=== PATIENT | male | born 1975 | race Caucasian/White ===

== ENCOUNTER 2019-05-02 00:21 | Emergency (ER) | payer MEDICAID ==
[~2019-05-02] VITALS: Ht 175.3 cm; Wt 81.0 kg
--- NOTE | 2019-05-02 00:45 | NUR ---
nil [id number]
--- NOTE | 2019-05-02 01:36 | NUR ---
NO CHANGE IN PT STATUS; AWAIT ED ROOM AVAILABILITY. AMBULATORY IN WR AREA WITH VISITOR.
--- NOTE | 2019-05-02 02:18 | NUR ---
pt to room from lobby
--- NOTE | 2019-05-02 02:18 | NUR ---
assessment made. chart up for MD to see.
--- NOTE | 2019-05-02 02:21 | NUR ---
ERP at bedside.
[2019-05-02] MEDS ORDERED: ONDANSETRON ODT 4 MG PO ONE (02:30)
[2019-05-02] MEDS ORDERED: MAALOX/HYOSCYAMINE/LIDOCAINE 45 ML BTL PO ONE (02:30)
[2019-05-02] MEDS ORDERED: MAALOX/HYOSCYAMINE/LIDOCAINE 45 ML BTL ONE (02:33)
[2019-05-02] MEDS ORDERED: ONDANSETRON ODT 4 MG ONE (02:33)
--- NOTE | 2019-05-02 02:36 | NUR ---
patient medicated. microbiology lab technician at bedside for blood draw. urine sample obtained and sent to lab.
[2019-05-02 02:43] LABS: MICROSCOPIC NOT IND
[2019-05-02 02:45] LABS: CULTURE INDICATED? NO
[2019-05-02 02:56] LABS: ALANINE AMINOTRANSFERASE 42 U/L (12-78); ALBUMIN 3.7 g/dL (3.4-5.0); ANION GAP 4 mmol/L (5-15); CALCIUM 8.5 mg/dL (8.5-10.1); CHLORIDE 110 mmol/L (98-107); CREATININE 1.18 mg/dL (0.7-1.3)
[2019-05-02 02:59] LABS: BASOPHILS # (AUTO) 0.08 x10^3/uL (0-0.1); BASOPHILS % (AUTO) 1 % (0-1); EOSINOPHILS # (AUTO) 0.17 x10^3/uL (0-0.4); EOSINOPHILS % (AUTO) 2 % (1-7); LYMPHOCYTES # (AUTO) 1.85 x10^3/uL (1-3.4); LYMPHOCYTES % (AUTO) 24 % (22-44); MD NO; MEAN CORPUSCULAR HEMOGLOBIN 31.5 pg (27.5-34.5); MEAN CORPUSCULAR HGB CONC 34.4 g/dL (33.2-36.2); MEAN CORPUSCULAR VOLUME 91.7 fL (81-97); MEAN PLATELET VOLUME 8.9 fL (7.4-10.4); MONOCYTES # (AUTO) 0.56 x10^3/uL (0.2-0.8); MONOCYTES % (AUTO) 7 % (2-9); NEUTROPHILS # (AUTO) 5.22 x10^3/uL (1.8-6.8); NEUTROPHILS % (AUTO) 66 % (42-75); PLATELET COUNT 158 x10^3/uL (130-400); RED BLOOD COUNT 4.73 x10^6/uL (4.38-5.82); RED CELL DISTRIBUTION WIDTH 13.5 % (9.4-14.8)
[2019-05-02 03:00] LABS: ALKALINE PHOSPHATASE 51 U/L (45-117); BILIRUBIN,TOTAL 0.4 mg/dL (0.2-1.0); TOTAL PROTEIN 7.1 g/dL (6.4-8.2); TROPONIN I < 0.015 ng/mL (0.000-0.045)
--- NOTE | 2019-05-02 03:19 | NUR ---
Ultrasound at bedside.
[2019-05-02 03:51] VITALS: BP 100/65
--- NOTE | 2019-05-02 03:55 | NUR ---
labs and imaging back. ERP at bedside for re-evaluation.
[2019-05-02] MEDS ORDERED: LIDOCAINE 1%-EPI 1:100K, 20ML INFIL ONE (04:00)
--- NOTE | 2019-05-02 04:05 | NUR ---
patient discharged with prescriptions and instruction. verbalized understanding.
== END 2019-05-02 04:17 | disposition home or self-care (01) ==
LOC: ED 04:00
DX: K76.0 Fatty (change of) liver, not elsewhere classified (principal); F17.200 Nicotine dependence, unspecified, uncomplicated
CPT/HCPCS: 36415; 71045; 76700; 80053; 81003; 83690; 84484; 85025; 93005; 99284; Q0162

== ENCOUNTER 2019-05-07 14:23 | Emergency (ER) | payer MEDICAID ==
[~2019-05-07] VITALS: Ht 175.3 cm; Wt 80.0 kg
--- NOTE | 2019-05-07 14:50 | NUR ---
FIRST CONTACT WITH PT, PRECEPTOR RN: Pt resting on gurney. NADN. Spouse at bedside. Pt c/o lower abdominal pain seven days with nausea, vomitting, and cramping. Pt states, "I was here Wednesday, they said it was some GI thing. They gave me Zofran, Pepcid, and Prilosec. I am not getting better." Pt connected to NIBP cuff and continous pulse ox. Bed rail up x 1 for safety measures. Call light within reach. Pt denies cp, sob, trauma, or syncope. CMS intact. No needs expressed at this time.
[2019-05-07] MEDS ORDERED: SODIUM CHLORIDE FLUSH 10ML SYR IVF ONE (15:00)
[2019-05-07 15:08] LABS: BASOPHILS # (AUTO) 0.02 x10^3/uL (0-0.1); BASOPHILS % (AUTO) 0 % (0-1); EOSINOPHILS # (AUTO) 0.12 x10^3/uL (0-0.4); EOSINOPHILS % (AUTO) 2 % (1-7); LYMPHOCYTES # (AUTO) 0.89 x10^3/uL (1-3.4); LYMPHOCYTES % (AUTO) 17 % (22-44); MD NO; MEAN CORPUSCULAR HEMOGLOBIN 30.5 pg (27.5-34.5); MEAN CORPUSCULAR HGB CONC 33.6 g/dL (33.2-36.2); MEAN CORPUSCULAR VOLUME 90.7 fL (81-97); MEAN PLATELET VOLUME 7.9 fL (7.4-10.4); MONOCYTES # (AUTO) 0.59 x10^3/uL (0.2-0.8); MONOCYTES % (AUTO) 11 % (2-9); NEUTROPHILS # (AUTO) 3.58 x10^3/uL (1.8-6.8); NEUTROPHILS % (AUTO) 69 % (42-75); PLATELET COUNT 160 x10^3/uL (130-400); RED BLOOD COUNT 4.77 x10^6/uL (4.38-5.82); RED CELL DISTRIBUTION WIDTH 13.2 % (9.4-14.8)
[2019-05-07 15:19] LABS: ALBUMIN 3.5 g/dL (3.4-5.0); ANION GAP 6 mmol/L (5-15); CALCIUM 8.2 mg/dL (8.5-10.1); CHLORIDE 113 mmol/L (98-107); CREATININE 1.22 mg/dL (0.7-1.3)
--- NOTE | 2019-05-07 15:25 | NUR ---
PIV STARTED, PT TO CT C TECH
[2019-05-07 15:29] LABS: ALANINE AMINOTRANSFERASE 37 U/L (12-78); ALKALINE PHOSPHATASE 56 U/L (45-117); BILIRUBIN,TOTAL 0.7 mg/dL (0.2-1.0); TOTAL PROTEIN 6.8 g/dL (6.4-8.2)
[2019-05-07] MEDS ORDERED: OMNIPAQUE 350 MG/ML, 100ML BOTTLE ONE (16:11)
--- NOTE | 2019-05-07 16:15 | NUR ---
PT BACK FROM CT, SIG OTHER AT BEDSIDE. NAD NOTED, NO NEEDS AT THIS TIME
[2019-05-07 16:16] VITALS: BP 111/68
--- NOTE | 2019-05-07 16:20 | NUR ---
EDMD IN TO UPDATE PT
[2019-05-07] MEDS ORDERED: HYDROcodone/APAP 5/325 TABLET PO ONE (16:30)
[2019-05-07] MEDS ORDERED: HYDROcodone/APAP 5/325 TABLET ONE (16:41)
--- NOTE | 2019-05-07 16:52 | NUR ---
Patient given discharge instructions and they have confirmed that they understand the instructions. Patient ambulatory with steady gait. Pt left with d/c paperwork, prescription, discharge paperwork, and all personal belongings. NADN. Pt encourage to return to ED if symptoms worsen or change.
== END 2019-05-07 16:56 | disposition home or self-care (01) ==
LOC: ED 15:04
DX: K52.9 Noninfective gastroenteritis and colitis, unspecified (principal); Z86.19 Personal history of other infectious and parasitic diseases; F17.200 Nicotine dependence, unspecified, uncomplicated
CPT/HCPCS: 36415; 74177; 80053; 83605; 83690; 85025; 99284; Q9967